=== PATIENT | female | born 1950 | race Caucasian/White ===

== ENCOUNTER 2020-07-07 19:50 | Emergency (ER) | payer OTHER ==
--- OUTSIDE RECORDS SUMMARY | 2020-07-07 19:52 | XMS REPORT | Clinical Summary ---
:1950 Author Organization [facility] Address [address] [place] [address] Care Team Providers Name Role Phone Thania Crews MD Primary Care Provider Allergies Active Allergy Reactions Severity Noted Date Comments Sulfa (Sulfonamide Antibiotics) Hives 8 Medications Medication Sig Dispensed Refills Start Date End Date Status meloxicam (MOBIC) 15 Take 1 tablet (15 30 tablet 2 08/12/2017 Active mg tablet mg total) by mouth daily. Active Problems Problem Noted Date Lumbar radiculopathy, right 11/02/2017 Surgical History Surgery Date Site/Laterality Comments SECTION MICRODISCECTOMY LUMBAR Medical History Medical History Date Comments Anemia Cancer (HCC) Hypertension Right leg pain Difficulty standing Pain aggravated by walking Wears glasses High blood pressure Osteopenia Low back pain Peripheral neuropathy Family History Medical History Relation Name Comments Heart disease Mother Relation Name Status Comments Father Mother Other siblings Alive Other sibling Other children Alive Social History Tobacco Use Types Packs/Day Years Used Date Never Smoker Smokeless Tobacco: Never Used Alcohol Use Drinks/Week oz/Week Comments No Sex Assigned at Date Recorded Not on file Last Filed Vital Signs Not on file Plan of Treatment Health Maintenance Due Date Last Done Comments COVID-19 VACCINE (#1) 1968 BREAST CANCER SCREENING 2002 COLONOSCOPY SCREENING 2002 SHINGLES VACCINES (#1) 2002 65+ PNEUMOCOCCAL VACCINE (1 of 1 - PPSV23) 2017 INFLUENZA VACCINE 01/28/2020 Results Not on fileafter 07/07/2019 Advance Directives For more information, please contact: [phone] Type Date Recorded Patient Structural Technician Explanati on Advance Directives, Living Will and Medical Power of Data Integration Developer
--- OUTSIDE RECORDS SUMMARY | 2020-07-07 19:52 | XMS REPORT | Continuity of Care Document ---
:1950 Author Organization [facility] t Address [address] [place] [address] Care Team Providers Name Role Phone PINEDA MATTHEWS Primary Care Physician Unavailable RADHA Attending Clinician Unavailable Payers Payer Name Policy Type Policy Number Effective Date Expiration Date S corrine [employer]ET[employer] O [id number] 2014 00:00:00 HUMANA CHOICE [id number] 2020 MEDICARE PPO 00:00:00 Problems Condition Condition Condition Status Onset Resolution Last Treating Co mments Source Name Details Category Date Date Treatment Clinician Date Lumbar Lumbar Disease Active [place] radiculopa radiculopa 5-07 Me thodi thy, right thy, right 00:00: st 00 Allergies, Adverse Reactions, Alerts Allergy Allergy Status Severity Reaction(s) Onset Inactive Treating Comm ents Source Name Type Date Date Clinician Sulfa Propensi Active Hives [place] (Sulfona ty to 2-08 Methodi mide adverse 00:00: st Antibiot reaction 00 ics) s to drug Family History Family Member Diagnosis Comments Start Date Stop Date Source Natural mother Heart disease [place] [facility] Social History Social Habit Start Date Stop Date Quantity Comments Source Sex Assigned At [facility] ethodist Tobacco use and 2017-11-02 2017-11-02 Never used [facility] ethodist exposure 00:00:00 00:00:00 Alcohol intake 2017-11-02 2017-11-02 Current [facility] thodist 00:00:00 00:00:00 non-drinker of alcohol (finding) Smoking Status Start Date Stop Date Source Never smoker [place] [facility] t Medications Ordered Filled Start Stop Current Ordering Indication Dosage Frequency Signature Comments Components Source Medication Medication Date Date Medication? Clinician (SIG) Name Name meloxicam Yes 15mg QD Take 1 [place] (MOBIC) 15 2-14 tablet (15 Met hodi mg tablet 00:00: mg total) st 00 by mouth daily. Procedures This patient has no known procedures. Plan of Care Planned Activity Planned Date Details Comments Source Future Scheduled 2020-01-28 INFLUENZA VACCINE [place] [facility] 00:00:00 [code = INFLUENZA VACCINE] Future Scheduled 2017 65+ PNEUMOCOCCAL [place] [facility] Test 00:00:00 VACCINE (1 of 1 - PPSV23) [code = 65+ PNEUMOCOCCAL VACCINE (1 of 1 - PPSV23)] Future Scheduled 2002 BREAST CANCER [facility] thodist Test 00:00:00 SCREENING [code = BREAST CANCER SCREENING] Future Scheduled 2002 COLONOSCOPY SCREENING [facility] Test 00:00:00 [code = COLONOSCOPY SCREENING] Future Scheduled 2002 SHINGLES VACCINES (#1) [facility] [place] [facility] Test 00:00:00 [code = SHINGLES VACCINES (#1)] Future Scheduled 1968 COVID-19 VACCINE (#1) [place] [facility] Test 00:00:00 [code = COVID-19 VACCINE (#1)] Encounters Start End Encounter Admission Attending Care Care Encounter Source Date/Time Date/Time Type Type Clinicians Facility Department ID 2020-03-16 2020-03-16 Outpatient JEREMIAH GARCIA MDA MDA [id number] 11:25:10 23:59:00 LACY salgado 2020-03-16 2020-03-16 Outpatient JEREMIAH GARCIA MDA MDA [id number] 13:46:35 15:29:36 LACY salgado 2020-03-16 2020-03-16 Outpatient YUKO HUNTLEY [id number] 13:06:14 13:06:14 Leon salgado 2020-03-16 2020-03-16 Outpatient JEREMIAH GARCIA MDA MDA [id number] 11:46:42 11:46:42 LACY salgado Results This patient has no known results.
[2020-07-07 22:00] LABS: Absolute Lymphocytes (CBC) 2.2 K/uL (0.7-4.9); Basophils % 1.4 % (0-1.3); Hematocrit 35.6 % (36.0-45.0); Lymphocytes % 24.7 % (15.3-44.8); MPV 9.1 fL (7.6-11.3); RBC Red Blood Cell Count 6.36 M/uL (3.86-4.86)
[2020-07-07 22:01] LABS: Protime INR 1.06
[2020-07-07 22:18] LABS: ALT/SGPT 20 U/L (12-78); AST/SGOT 24 U/L (15-37); Albumin 3.5 g/dL (3.4-5.0); Alkaline Phosphatase 119 U/L (45-117); BUN Blood Urea Nitrogen 19 mg/dL (7-18); Bicarbonate 28 mmol/L (21-32); Bilirubin Direct < 0.1 mg/dL (0-0.2); Bilirubin Total 0.3 mg/dL (0.2-1.0); Glucose Level 111 mg/dL (74-106); Magnesium 1.8 mg/dL (1.8-2.4); NT PRO-BNP 80 pg/mL (<125); Potassium 3.7 mmol/L (3.5-5.1); Protein, Total 7.7 g/dL (6.4-8.2); Sodium Level 143 mmol/L (136-145); Troponin (Emerg Dept Use Only) < 0.02 ng/mL (0.0-0.045)
[2020-07-07 22:26] LABS: Thyroid Stimulating Hormone 10.2 uIU/mL (0.360-3.740)
[2020-07-07 22:32] LABS: Anisocytosis 2+; Blood Morphology Comment NOTED (NOT SEEN); Hypochromasia 1+; Ovalocytes 2+; Platelet Estimate ADEQ; Poikilocytosis 1+; Teardrop Cell 1+; White Blood Cell Scan OK (OK)
--- NOTE | 2020-07-08 00:18 | ER ---
Nurse's Notes [facility] Name: Ching Iverson Age: 70 yrs Sex: Female : 1950 Arrival Date: 07/07/2020 Time: 19:51 Bed 20 Private MD: Samia Chiang C Diagnosis: Dyspnea Presentation: 07/07 19:57 Chief complaint: Patient states: I started having palpitations 15 minutes ago, felt my ca1 pulse and it was erratic. It feels like it would pause for a while then beat, then pause again, it lasted about a minute. I don't have any chest pain, but I am breathing faster and heavier. I am not stressed out. I was just watching TV and drinking a glass of wine. And this has not happened before. Coronavirus screen: Client denies travel out of the [place] in the last 14 days. At this time, the client does not indicate any symptoms associated with coronavirus-19. Ebola Screen: Patient negative for fever greater than or equal to 101.5 degrees Fahrenheit, and additional compatible Ebola Virus Disease symptoms Patient denies exposure to infectious person. Patient denies travel to an Ebola-affected area in the 21 days before illness onset. No symptoms or risks identified at this time. Initial Sepsis Screen: Does the patient meet any 2 criteria? No. Patient's initial sepsis screen is negative. Does the patient have a suspected source of infection? No. Patient's initial sepsis screen is negative. Risk Assessment: Do you want to hurt yourself or someone else? Patient reports no desire to harm self or others. Onset of symptoms was July 07, 2020. 19:57 Method Of Arrival: Ambulatory ca1 19:57 Acuity: CRYSTAL 3 ca1 Triage Assessment: 20:03 General: Appears in no apparent distress. comfortable, Behavior is calm, cooperative, ca1 appropriate for age. Pain: Denies pain. Historical: - Allergies: 20:03 Sulfa (Sulfonamide Antibiotics); ca1 - Home Meds: 20:03 Metoprolol Tartrate Oral [Active]; Lipitor Oral [Active]; ca1 - PMHx: 20:03 Hypertension; High Cholesterol; ca1 - PSHx: 20:03 Back surgery; ; ca1 - Immunization history:: Adult Immunizations up to date, Pneumococcal vaccine is up to date, Flu vaccine is up to date. - Social history:: Smoking status: Patient denies any tobacco usage or history of. Screenin:51 Abuse screen: Denies threats or abuse. Denies injuries from another. Nutritional rr5 screening: No deficits noted. Tuberculosis screening: No symptoms or risk factors identified. Fall Risk IV access (20 points). Total Leong Fall Scale indicates No Risk (0-24 pts). Assessment: 21:10 General: Appears in no apparent distress. comfortable, Behavior is calm, cooperative, rr5 appropriate for age. 21:10 Pain: Denies pain. Neuro: Level of Consciousness is awake, alert, obeys commands, rr5 Oriented to person, place, time. Cardiovascular: Reports palpitations, Capillary refill < 3 seconds Patient's skin is warm and dry. Respiratory: Airway is patent Respiratory effort is even, unlabored, Respiratory pattern is regular, symmetrical. GI: No signs and/or symptoms were reported involving the gastrointestinal system. : No signs and/or symptoms were reported regarding the genitourinary system. EENT: No signs and/or symptoms were reported regarding the EENT system. Derm: Skin is intact, is healthy with good turgor, Skin temperature is warm. Musculoskeletal: Circulation, motion, and sensation intact. Capillary refill < 3 seconds. 21:54 Reassessment: Patient appears in no apparent distress at this time. Patient is alert, rr5 oriented x 3, equal unlabored respirations, skin warm/dry/pink. went to CT scan. 22:56 Reassessment: Patient appears in no apparent distress at this time. Patient is alert, rr5 oriented x 3, equal unlabored respirations, skin warm/dry/pink. awaiting for results Patient denies pain at this time. 07/08 00:10 Reassessment: Patient appears in no apparent distress at this time. Patient is alert, rr5 oriented x 3, equal unlabored respirations, skin warm/dry/pink. reassess by the ED provider. 00:26 Reassessment: Patient appears in no apparent distress at this time. Patient is alert, rr5 oriented x 3, equal unlabored respirations, skin warm/dry/pink. discharge instruction given and explained without complaints made. Vital Signs: 07/07 19:57 BP 159 / 95; Pulse 87; Resp 16 S; Temp 97.8(TE); Pulse Ox 99% on R/A; Weight 68.04 kg ca1 (R); Height 5 ft. 2 in. (157.48 cm) (R); Pain 0/10; 21:40 BP 128 / 77; Pulse 80; Resp 16; Pulse Ox 99% ; rr5 22:56 BP 122 / 54; Pulse 72; Resp 19; Pulse Ox 98% ; rr5 07/08 00:00 BP 120 / 66; Pulse 75; Resp 16; Pulse Ox 98% ; rr5 00:25 BP 120 / 70; Pulse 70; Resp 16; Temp 98; Pulse Ox 99% ; rr5 07/07 19:57 Body Mass Index 27.44 (68.04 kg, 157.48 cm) ca1 ED Course: 07/07 19:51 Patient arrived in ED. am2 19:52 Samia Chiang MD is Private Physician. am2 20:01 Triage completed. ca1 20:03 Arm band placed on right wrist. ca1 21:16 Donald Faith PA is PHCP. [facility] 21:16 Ammon Vance MD is Attending Physician. [facility] 21:20 Patient has correct armband on for positive identification. Placed in gown. Bed in low rr5 position. Call light in reach. Side rails up X2. carpenter mold on. Pulse ox on. NIBP on. 21:40 Inserted saline lock: 20 gauge in right forearm, using aseptic technique. Blood rr5 collected. 21:44 XRAY Chest (1 view) In Process Unspecified. EDMS 21:50 Ryan Hardwick, RN is Primary Nurse. rr5 22:29 CT Chest For PE Angio In Process Unspecified. EDIN 07/08 00:17 Samia Chiang MD is Referral Physician. [facility] 00:27 No provider procedures requiring assistance completed. IV discontinued, intact, rr5 bleeding controlled, No redness/swelling at site. Pressure dressing applied. Administered Medications: No medications were administered Outcome: 00:17 Discharge ordered by . [facility] 00:27 Discharged to home ambulatory. rr5 00:27 Condition: stable 00:27 Discharge instructions given to patient, Instructed on discharge instructions, follow up and referral plans. Demonstrated understanding of instructions, follow-up care. 00:27 Patient left the ED. rr5 Signatures: Dispatcher [employer] EDIN Mickail, DonaldANGY georges Amanda am2 Ryan Hardwick, RN RN rr5 Lucrecia Frazier, RN RN ca1
--- NOTE | 2020-07-08 00:19 | EDPHYS ---
Physician Documentation [facility] Name: Ching Iverson Age: 70 yrs Sex: Female : 1950 Arrival Date: 07/07/2020 Time: 19:51 Bed 20 Private MD: Samia Chiang C ED Physician Ammon Vance HPI: 07/07 21:46 This 70 yrs old Female presents to ER via Ambulatory with complaints of jmm Palpitations. 21:46 The patient presents with a history of irregular heart beat, heart skipping beats. jmm Onset: The symptoms/episode began/occurred gradually, today. Duration: The patient or guardian reports multiple episodes, that are intermittent. Modifying factors: The symptoms are aggravated by nothing. The symptoms are alleviated by nothing. This is a 70 year old female with a history of htn, hlp that presents to the ED with complaints of shortness of breath along with palpitations beginning earlier today. Patient states having palpitations in the past but not with the sob. 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 Patient denies fever, chest pain, or cough. . Historical: - Allergies: 20:03 Sulfa (Sulfonamide Antibiotics); ca1 - Home Meds: 20:03 Metoprolol Tartrate Oral [Active]; Lipitor Oral [Active]; ca1 - PMHx: 20:03 Hypertension; High Cholesterol; ca1 - PSHx: 20:03 Back surgery; ; ca1 - Immunization history:: Adult Immunizations up to date, Pneumococcal vaccine is up to date, Flu vaccine is up to date. - Social history:: Smoking status: Patient denies any tobacco usage or history of. ROS: 21:46 Cardiovascular: Positive for palpitations, Negative for chest pain. jmm 21:46 Respiratory: Positive for shortness of breath. 21:46 All other systems are negative. Exam: 21:46 Constitutional: This is a well developed, well nourished patient who is awake, alert, jmm and in no acute distress. Head/Face: atraumatic. Eyes: EOMI, no conjunctival erythema appreciated ENT: Moist Mucus Membranes Neck: Trachea midline, Supple Chest/axilla: Normal chest wall appearance and motion. Cardiovascular: Regular rate and rhythm. No edema appreciated Respiratory: Normal respirations, no respiratory distress appreciated Abdomen/GI: Non distended, soft Back: Normal ROM Skin: General appearance color normal MS/ Extremity: Moves all extremities, no obvious deformities appreciated, no edema noted to the lower extremities Neuro: Awake and alert, normal gait Psych: Behavior is normal, Mood is normal, Patient is cooperative and pleasant Vital Signs: 19:57 BP 159 / 95; Pulse 87; Resp 16 S; Temp 97.8(TE); Pulse Ox 99% on R/A; Weight 68.04 kg ca1 (R); Height 5 ft. 2 in. (157.48 cm) (R); Pain 0/10; 21:40 BP 128 / 77; Pulse 80; Resp 16; Pulse Ox 99% ; rr5 22:56 BP 122 / 54; Pulse 72; Resp 19; Pulse Ox 98% ; rr5 07/08 00:00 BP 120 / 66; Pulse 75; Resp 16; Pulse Ox 98% ; rr5 00:25 BP 120 / 70; Pulse 70; Resp 16; Temp 98; Pulse Ox 99% ; rr5 07/07 19:57 Body Mass Index 27.44 (68.04 kg, 157.48 cm) ca1 MDM: 07/07 21:17 Patient medically screened. [facility] 07/08 00:15 Data reviewed: vital signs, nurses notes. Counseling: I had a detailed discussion with reyna the patient and/or guardian regarding: the historical points, exam findings, and any diagnostic results supporting the discharge/admit diagnosis, lab results, radiology results, the need for outpatient follow up, to return to the emergency department if symptoms worsen or persist or if there are any questions or concerns that arise at home. ED course: Patient is alert and non toxic in appearance in the ED. patient is advised to follow up with pcp for reevaluation. I discussed CT results along with the need to follow up with oncology. Patient states she feels much better. Patient is otherwise given strict return precautions Patient understood and agrees with the plan of care. . 07/07 21:18 Order name: Basic Metabolic Panel; Complete Time: 22:26 [facility] 07/07 23:18 Interpretation: CL 109. [facility] 07/07 21:18 Order name: CBC with Diff; Complete Time: 23:03 [facility] 07/07 21:18 Order name: LFT's; Complete Time: 22:26 [facility] 07/07 21:18 Order name: Magnesium; Complete Time: 22:26 [facility] 07/07 21:18 Order name: NT PRO-BNP; Complete Time: 22:26 [facility] 07/07 21:18 Order name: PT-INR; Complete Time: 22:26 [facility] 07/07 21:18 Order name: Troponin (emerg Dept Use Only); Complete Time: 22:26 [facility] 07/07 21:18 Order name: XRAY Chest (1 view) [facility] 07/07 21:26 Order name: TSH; Complete Time: 23:03 [facility] 07/07 21:44 Order name: Type And Screen; Complete Time: 23:03 [facility] 07/07 22:04 Order name: CBC Smear Scan; Complete Time: 23:03 [facility] 07/07 22:27 Order name: T4 Free; Complete Time: 23:03 [facility] 07/07 23:14 Order name: Troponin (emerg Dept Use Only) [facility] 07/07 23:15 Order name: Troponin (Emerg Dept Use Only); Complete Time: 00:06 [facility] 07/07 20:04 Order name: EKG; Complete Time: 20:05 [facility] 07/07 20:04 Order name: EKG - Nurse/Tech; Complete Time: 20:10 [facility] 07/07 21:18 Order name: EKG; Complete Time: 21:19 [facility] 07/07 21:18 Order name: Cardiac monitoring; Complete Time: 21:43 [facility] 07/07 21:18 Order name: IV Saline Lock; Complete Time: 21:53 [facility] 07/07 21:18 Order name: Labs collected and sent; Complete Time: 21:53 [facility] 07/07 21:18 Order name: O2 Per Protocol; Complete Time: 21:53 [facility] 07/07 21:18 Order name: O2 Sat Monitoring; Complete Time: 21:53 [facility] 07/07 21:27 Order name: CT Chest For PE Angio [facility] Administered Medications: No medications were administered Disposition: 05:57 Co-signature as Attending Physician, Ammon Vance MD. [email or web address] Disposition: 07/08/20 00:17 Discharged to Home. Impression: Dyspnea. - Condition is Stable. - Discharge Instructions: Shortness of Breath. - Medication Reconciliation Form, Thank You Letter, Antibiotic Education, Prescription Opioid Use form. - Follow up: Samia Chiang MD; When: 2 - 3 days; Reason: Recheck today's complaints, Continuance of care, Re-evaluation by your physician. Signatures: Dispatcher [employer] EDMS Donald Faith PA PA jmm Roque, Raymond, RN RN rr5 Lucrecia Frazier RN RN ca1 Ammon Vance MD MD [email or web address] Corrections: (The following items were deleted from the chart) 00:27 00:17 07/08/2020 00:17 Discharged to Home. Impression: Dyspnea. Condition is Stable. rr5 Forms are Medication Reconciliation Form, Thank You Letter, Antibiotic Education, Prescription Opioid Use. Follow up: Samia Chiang; When: 2 - 3 days; Reason: Recheck today's complaints, Continuance of care, Re-evaluation by your physician. reyna
[2020-07-08 00:58] VITALS: BP 120/70; TEMP 98; O2SAT 99
--- NOTE | 2020-07-08 07:25 | EKG ---
Test Date: 2020-07-07 Test Time: 20:08:11 Financial Operations Clerk: MARICHUY MEASUREMENT RESULTS: Intervals: Rate: 86 OK: 192 QRSD: 92 QT: 400 QTc: 478 [place]: P: 57 OK: 192 QRS: 62 T: 68 INTERPRETIVE STATEMENTS: Normal sinus rhythm Incomplete right bundle branch block Borderline ECG No previous ECG available for comparison Electronically Signed On 07-08-20 07:23:57 [employer] INCIDENT RESPONDER by Gary Haque
--- NOTE | 2020-07-08 12:35 | RAD REPORT ---
EXAM DESCRIPTION: RAD - Chest Single View - 07/07/2020 9:44 pm CLINICAL HISTORY: CHEST PAIN Chest pain. COMPARISON: Chest For Pe Angio dated 07/07/2020 FINDINGS: Portable technique limits examination quality. The lungs are grossly clear. The heart is normal in size. No displaced fractures. IMPRESSION: No acute intrathoracic process suspected.
--- NOTE | 2020-07-08 19:14 | RAD REPORT ---
EXAM DESCRIPTION: Chest For Pe Angio CLINICAL HISTORY: Shortness of breath COMPARISON: None Available. TECHNIQUE: CTA of the chest obtained following the uncomplicated intravenous administration of iodin ated contrast. 3-D/MIP reformatted images of the chest available for evaluation. FINDINGS: Chest: Pulmonary arteries: Contrast bolus is adequate.No filling defects identified in the pulmonary arterie s to suggest pulmonary embolus. Thyroid: No abnormalities of the visualized thyroid. Great Vessels: Great vessels have normal anatomic configuration. Thoracic Aorta: Atherosclerotic calcification of the thoracic aorta. Heart: No cardiomegaly, significant pericardial effusion, or coronary artery atherosclerosis Lymph Nodes: No enlarged mediastinal lymph nodes identified. Esophagus: Small hiatal hernia. Other: No additional findings. Lungs: Minimal bilateral dependent atelectasis. Multiple solid pulmonary nodules, the largest in the left upper lobe measuring 0.8 cm, best seen on image #23, series 401. Pleura: No pleural effusion or pneumothorax. Trachea/Airways: No abnormalities of the visualized trachea or airways. Bones: Minimal degenerative endplate spondylosis. Upper Abdomen: Limited images of the upper abdomen demonstrate no definite abnormalities of visualize d portions of the liver, gallbladder, pancreas, spleen, adrenal glands, or kidneys. IMPRESSION: 1. No pulmonary embolus. 2. Multiple solid pulmonary nodules. Most severe: 8 mm left solid pulmonary nodule within the upper l obe. Recommend a non-contrast Chest CT at 3-6 months. If patient is high risk for malignancy, recomme nd an additional non-contrast Chest CT at 18-24 months; if patient is low risk for malignancy a non-c ontrast Chest CT at 18-24 months is optional. These guidelines do not apply to immunocompromised patients and patients with cancer. Follow up in pa tients with significant comorbidities as clinically warranted. For lung cancer screening, adhere to L guido-RADS guidelines. Reference: Radiology. 2017; 284(1):228-43. This exam was performed according to our departmental dose-optimization program, which includes autom ated exposure control, adjustment of the mA and/or kV according to patient size and/or use of iterati ve reconstruction technique. Electronically signed by: Rishabh Matthews 07/07/2020 10:43 PM JEWELRY BENCH WORKER Due to temporary technical issues with the PACS/Fluency reporting system, reports are being signed by the in house radiologists without review as a courtesy to insure prompt reporting. The interpreting radiologist is fully responsible for the content of the report.
== END 2020-07-08 00:27 | disposition home or self-care (01) ==
LOC: ER 19:50
DX: R06.00 Dyspnea, unspecified (principal); I10 Essential (primary) hypertension; E78.00 Pure hypercholesterolemia, unspecified; Z88.2 Allergy status to sulfonamides; Z85.72 Personal history of non-Hodgkin lymphomas
CPT/HCPCS: 93005; 85025; 80048; 36415; 86900; 83735; 86850; 85610; 82565; 86901; 80076; 84443; 84484 ×2; 84439; 83880; 71275; 71045; 99284; Q9967